=== PATIENT | female | born 1950 | race Two or more races ===

== ENCOUNTER 2020-08-29 10:53 | Day surgery (SDC) | payer MEDICARE, BC ==
[~2020-08-29] VITALS: Ht 160 cm; Wt 62.9 kg
[2020-08-29] VITALS (8 sets, daily range): BP systolic 109–146; BP diastolic 69–74
[2020-08-29] MEDS ORDERED: diphenhydrAMINE 25mg capsule PO PRN (11:15)
[2020-08-29] MEDS ORDERED: normal saline 1,000 ML IV SCH (11:15)
[2020-08-29] MEDS ORDERED: NITR0.4T51 SL (12:07)
[2020-08-29] MEDS ORDERED: ISOS5TAB3 PO (12:08)
[2020-08-29] MEDS ORDERED: AMLO5TAB4 PO (12:10)
[2020-08-29] MEDS ORDERED: METO-411 PO (12:11)
[2020-08-29] MEDS ORDERED: LEVO88TA2 PO (12:11)
[2020-08-29] MEDS ORDERED: LOSA25TA96 PO (12:12)
[2020-08-29] MEDS ORDERED: CLOP75TA35 PO (12:13)
[2020-08-29] MEDS ORDERED: ATOR20TA10 PO (12:14)
[2020-08-29 12:21] LABS: BASOPHILS % (AUTO) 0.4 % (0-1); EOSINOPHILS % (AUTO) 0.1 % (0-6); HEMOGLOBIN 13.1 g/dl (12.0-16.0); LYMPHOCYTES # (AUTO) 0.9 X10'3 (1.1-4.8); LYMPHOCYTES % (AUTO) 12.3 % (21-51); MEAN CORPUSCULAR HEMOGLOBIN 30.9 PG (27.0-31.0); MEAN CORPUSCULAR HGB CONC 33.6 g/dL (33.0-36.5); MEAN PLATELET VOLUME 7.6 FL (7.4-10.4); MONOCYTES # (AUTO) 0.4 X10'3 (0-0.9); NEUTROPHILS # (AUTO) 6.2 X10'3 (1.8-7.7); NEUTROPHILS % (AUTO) 82.2 % (42-75); PLATELET COUNT 292 X10'3 (140-440); RED BLOOD COUNT 4.24 X10'6 (4.20-5.60); WHITE BLOOD COUNT 7.5 X10'3 (4.5-11.0)
[2020-08-29 12:26] LABS: ALBUMIN 4.2 G/DL (3.4-5.0); ANION GAP 12 (8-16); BLOOD UREA NITROGEN 32 MG/DL (7-18); BUN/CREATININE RATIO 21.2 (6.6-38.0); CALCIUM 8.5 MG/DL (8.5-10.1); CHLORIDE 108 MMOL/L (99-107); CREATININE 1.51 MG/DL (0.40-0.90); GLUCOSE 120 MG/DL (70-104); MAGNESIUM 1.7 MG/DL (1.5-2.4); POTASSIUM 3.4 MMOL/L (3.5-5.1); SODIUM 146 MMOL/L (135-145); eGFR 34 ML/MIN
[2020-08-29] MEDS ORDERED: heparin 1,000unit/ml 10ml vial 10 ML ONE (13:35)
[2020-08-29] MEDS ORDERED: iohexol 350 MG/ML 50ML vial IV ONE ×2 (13:35→14:26)
[2020-08-29] MEDS ORDERED: fentaNYL/PF 50MCG/1 ML 2ML syringe ONE (13:35)
[2020-08-29] MEDS ORDERED: LIDOcaine 1% (10mg/ml)w/preservative injection 20ml MDV ONE (13:35)
[2020-08-29] MEDS ORDERED: iohexol 350MG/ML 100ml bottle IV ONE ×2 (13:35→14:13)
[2020-08-29] MEDS ORDERED: midazolam 2 mg/2 ml injection ONE (13:35)
== END 2020-08-29 18:00 | disposition home or self-care (01) ==
LOC: SSTAY O 10:53
PROVIDERS: ATTEND Internal Medicine Cardiovascular Disease
DX: I25.110 Atherosclerotic heart disease of native coronary artery with unstable angina pectoris (principal); I10 Essential (primary) hypertension; E78.5 Hyperlipidemia, unspecified; E11.9 Type 2 diabetes mellitus without complications; E03.9 Hypothyroidism, unspecified; M81.0 Age-related osteoporosis without current pathological fracture; Z87.11 Personal history of peptic ulcer disease; Z86.73 Personal history of transient ischemic attack (TIA), and cerebral infarction without residual deficits; Z98.890 Other specified postprocedural states; Z96.659 Presence of unspecified artificial knee joint; Z79.82 Long term (current) use of aspirin; Z79.84 Long term (current) use of oral hypoglycemic drugs; Z88.2 Allergy status to sulfonamides; Z88.8 Allergy status to other drugs, medicaments and biological substances; Z79.899 Other long term (current) drug therapy; Z80.3 Family history of malignant neoplasm of breast; Z82.49 Family history of ischemic heart disease and other diseases of the circulatory system
CPT/HCPCS: 36415; 80048; 83735; 85025; 85610; 93005; 93458; 99152; 99153; C1725; C1751; C1760; C1769; C1874; C1894; C9600; J1644; J2001; J2250; J3010; J7030; Q0163; Q9967; A4620; A6258

== ENCOUNTER 2025-04-08 09:36 | Day surgery (SDC) | payer BC, MEDICAID ==
[~2025-04-08] VITALS: Ht 160 cm; Wt 62.2 kg
[2025-04-08] VITALS (11 sets, daily range): BP systolic 98–157; BP diastolic 66–101; PULSE 73–82; RESP 10–16; TEMP 98.4; O2SAT 94–98
[~2025-04-08 09:36] MED LIST: AMLO5TAB4 PO; ATOR20TA10 PO; CLOP75TA34 PO; ISOS5TAB3 PO; LEVO88TA2 PO; LOSA-415 PO; METO-411 PO; NITR0.4T51 SL
[2025-04-08] MEDS ORDERED: midazolam 1 mg/ML 2ml injection ONE ×2 (10:01→11:29)
[2025-04-08] MEDS ORDERED: verapamil 2.5 mg/ml inj IV ONE (10:01)
[2025-04-08] MEDS ORDERED: LIDOcaine 1% (10mg/ml) 2ml vial ONE (10:01)
[2025-04-08] MEDS ORDERED: fentaNYL/PF 50MCG/1 ML 2ML syringe ONE (10:01)
[2025-04-08] MEDS ORDERED: iohexol 350 MG/ML 50ML vial IV ONE (10:02)
[2025-04-08] MEDS ORDERED: heparin 1,000unit/ml 10ml vial 10 ML ONE (10:02)
[2025-04-08] MEDS ORDERED: nitroGLYCERIN 500mcg/5mL D5W 0 ML IV ONE (10:09)
[2025-04-08] MEDS ORDERED: LEVO100T9 PO (10:18)
[2025-04-08] MEDS ORDERED: IBAN150T21 PO (10:18)
[2025-04-08] MEDS ORDERED: ATOR20TA66 PO (10:18)
[2025-04-08] MEDS ORDERED: AMLO-708 PO (10:18)
[2025-04-08] MEDS ORDERED: CILO100T3 PO (10:18)
[2025-04-08] MEDS ORDERED: ASPI-1265 PO (10:18)
[2025-04-08] MEDS ORDERED: PANT40TA54 PO (10:18)
--- NOTE | 2025-04-08 10:18 | ELECTROCARDIOGRAPH REPORT ---
[facility] Test Date: 2025-04-08 Test Time: 10:16:18 Pat Name: ZACH CABRERA Department: [facility] Patient ID: [id number] Room: Gender: F [employer]inist: LIAM : 1950 Requested By: FENG SALES Order Number: [id number] Reading MD: Dr. EDDY Aguilera Measurements Intervals [place] Rate: 75 P: 38 SD: 154 QRS: 1 QRSD: 96 T: -1 QT: 404 QTc: 452 Interpretive Statements Sinus rhythm Abnormal R-wave progression, early transition Probable left ventricular hypertrophy Electronically Signed On 04-09-2025 17:11:[address] EDDY Aguilera Please click the below link to view image of tracing.
[2025-04-08] MEDS ORDERED: TURM500T PO (10:23)
[2025-04-08] MEDS ORDERED: METO50TA7 PO (10:23)
[2025-04-08 10:25] LABS: MEAN PLATELET VOLUME 7.0 FL (7.4-10.4); RED CELL DISTRIBUTION WIDTH 15.9 % (11.5-14.5)
[2025-04-08] MEDS ORDERED: normal saline 1000ml 1,000 ML IV SCH (10:30)
[2025-04-08 10:31] LABS: INR 1.0 INR
[2025-04-08 10:33] LABS: CREATININE 1.08 MG/DL (0.40-0.90); TOTAL CARBON DIOXIDE 21.5 MMOL/L (24-32); eCRCL 39 ML/MIN; eGFR 50 ML/MIN
[2025-04-08] MEDS ORDERED: sodium bicarbonate 1meq/ml inj 150 ML in dextrose 5%-water 1,000 ML IV ONE (10:40)
[2025-04-08] MEDS ORDERED: LIDOcaine 1% 30ml preserv. free vial ONE (10:42)
[2025-04-08] MEDS ORDERED: clopidogrel 300mg tablet ONE (11:20)
[2025-04-08] MEDS ORDERED: protamine sulfate 10mg/ml inj. ONE (12:04)
[2025-04-08] MEDS ORDERED: ondansetron/PF 4mg/2ml inj IV PRN (12:55)
[2025-04-08] MEDS ORDERED: HYDROcodone/acetaminophen 5mg/325mg tablet PO PRN (13:00)
[2025-04-08] MEDS ORDERED: TICA90TA2 PO (13:17)
--- NOTE | 2025-04-08 13:27 | CARDIOLOGY REPORT ---
DATE OF SERVICE: 04/08/2025 DICTATING PHYSICIAN: FENG SALES DO CARDIAC CATHETERIZATION REPORT REFERRING PHYSICIAN: Vickie Bocanegra MD. CLINICAL HISTORY: This 74-year-old woman is status post RCA PDA stenting in early 08/2020. She has recently developed chest discomfort very similar to that experienced before her catheterization and subsequent stent placement. PROCEDURES PERFORMED: * Left heart catheterization. * Left ventriculography. * Selective coronary arteriography. * PTCA/stent placement (right coronary artery and PDA). * Percutaneous arteriotomy closure (Mynx). * 60 minutes conscious sedation and supervision. DESCRIPTION OF PROCEDURE: The patient was sedated with Fentanyl and Versed. She was then prepared and draped in the usual manner. The right inguinal area was infiltrated with 1% lidocaine using a micropuncture set in the Seldinger technique. A 7-Chinese sheath was placed in the common femoral artery. 3,000 units of heparin were given. Left heart catheterization and left ventriculography were performed using a 6-Chinese pigtail catheter. Coronary arteriography was performed using 6-Chinese #4 left and right Cinthya catheters. PTCA/stent placement: The patient was given an additional 5,000 units of heparin. The right coronary was engaged with a 6-Chinese 0.75 side hold guiding catheter. A Choice PT2 guidewire was passed down through the main stem right coronary and across a stenosis in the mid PDA just ahead of a previously placed stent in the proximal PDA. This lesion was dilated with a 2.5 x 12 mm balloon and the residual stenosis was covered with a 2.5 x 12 mm [place] drug-eluting stent deployed at 12 atmospheres. After test injections demonstrated stability of the treated area, final arteriography was performed. 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 The guidewire was still in place. The area of the dissection's origin was first stented with a 3.5 x 12 mm stent deployed at 18 atmospheres; however, the dissection had extended down to the bifurcation of the PDA and distalmost RCA. Therefore, the rest of the main stem right coronary from adjacent to the PDA backwards to the stent just placed proximally was covered with a 3.5 x 38 mm drug-eluting stent followed by a 3.5 x 34 mm drug-eluting stent, both of which were [place] drug-eluting stents. There appeared to still be a stenosis at the very ostium of the right coronary. Therefore, a 3.5 x 8 mm stent was placed in this location and deployed at 12 atmospheres. Additional angiography demonstrated brisk and full- filling of the entire right coronary. Interestingly, the patient never experienced chest pain or EKG changes during the entire procedure. After completing the "full metal jacket" procedure, there was no obvious residual stenosis or evidence of a dissection and there was brisk runoff within the stents. The arterial puncture site was managed with a Mynx occluder, although additional pressure was required. RESULTS: HEMODYNAMIC DATA: The left ventricular end diastolic pressure was 19 mmHg. There is no gradient across the aortic valve. LEFT VENTRICULOGRAM: The left ventriculogram was technically satisfactory. The ejection fraction was approximately 65%. There was moderate calcification in the left coronary system. LEFT MAIN CORONARY ARTERY: The left main was a large unobstructed vessel bifurcating into the left anterior descending and circumflex coronary arteries. LEFT ANTERIOR DESCENDING CORONARY ARTERY: The LAD was a large transapical vessel with a small to medium-sized very proximal first diagonal, a small to medium-sized bifurcated second diagonal that was also small to medium in size and emanating from the mid LAD. Just after the takeoff of the second diagonal, there was about a 40% area of narrowing, but there were no outright obstructive lesions in the left anterior descending coronary artery. CIRCUMFLEX CORONARY ARTERY: The circumflex was a large main stem vessel. There was a very small proximal first obtuse marginal. There was a long small first posterolateral and a large second posterolateral. There were no obstructive lesions in the circumflex coronary artery. RIGHT CORONARY ARTERY: The right coronary artery was a large main stem vessel. There was a medium to large posterior descending branch. There was a stent in the proximal PDA, which was widely patent. Just after the distal end of the PDA stent, there was a 90% stenosis. The far distal right coronary was composed of 3 tiny posterolateral branches. PTCA/STENT PLACEMENT: Following stenting of the lesion in the mid PDA, there was no significant residual stenosis and brisk runoff distally. Following extensive stenting of the guide dissection, there was no significant residual stenosis in any location and brisk runoff distally. 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 * Successful PTCA/stent placement to the mid PDA lesion. Following the intervention, there was no significant residual stenosis and ALICIA flow was graded as 3 before and after the intervention. * The stent (placed in 2019) within the proximal RCA PDA remains widely patent. 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 Following these stent placements, there was no significant residual stenosis, no evidence of residual dissection and ALICIA flow was graded as 3. * Left ventricular function was normal. The estimated LVEF was 60% to 65%. PLAN: Ongoing medical therapy. FENG SALES DO TID: [id number] RECEIPT: [id number] KAELYN NGUYEN
== END 2025-04-08 17:00 | disposition home or self-care (01) ==
LOC: SSTAY O 09:36
PROVIDERS: ATTEND Internal Medicine Cardiovascular Disease
DX: I25.118 Atherosclerotic heart disease of native coronary artery with other forms of angina pectoris (principal); E03.9 Hypothyroidism, unspecified; E78.5 Hyperlipidemia, unspecified; E11.9 Type 2 diabetes mellitus without complications; M06.89 Other specified rheumatoid arthritis, multiple sites; I10 Essential (primary) hypertension; Z95.5 Presence of coronary angioplasty implant and graft; Z79.899 Other long term (current) drug therapy; Z98.890 Other specified postprocedural states
CPT/HCPCS: 36415; 80048; 83735; 85025; 85610; 93005; 93458; 99152; 99153; C1760; C1874; C9600; C9601; J1644; J2003; J2250; J2720; J3010; J7030; Q0163; Q9967; A6258; C1725; C1751; C1769; C1894; J3490